=== PATIENT | female | born 1975 | race Caucasian/White ===

== ENCOUNTER 2022-06-20 15:34 | Emergency (ER) | payer OTHER ==
[~2022-06-20] VITALS: Ht 167.6 cm; Wt 90.7 kg
[2022-06-20 15:39] VITALS: BP_SYST 117
--- NOTE | 2022-06-20 16:39 | NUR ---
HCG NEGATIVE POC TEST IN ER.
[2022-06-20 16:44] LABS: BASOPHILS % (AUTO) 0.2 % (0.0-2.0); EOSINOPHILS # (AUTO) 0.2 K/uL (0.0-0.4); EOSINOPHILS % (AUTO) 2.9 % (0.0-4.0); HEMATOCRIT 40.9 % (36-48); HEMOGLOBIN 13.7 g/dL (12.0-16.0); LYMPHOCYTES # (AUTO) 1.5 K/uL (1.0-5.5); LYMPHOCYTES % (AUTO) 23.8 % (20.5-51.5); MEAN CORPUSCULAR HEMOGLOBIN 28 pg (27-31); MEAN CORPUSCULAR HGB CONC 34 % (32-36); MEAN CORPUSCULAR VOLUME 84 fL (79.0-98.0); MONOCYTES # (AUTO) 0.4 K/uL (0.0-1.0); NEUTROPHILS # (AUTO) 4.3 K/uL (1.8-7.7); NEUTROPHILS % (AUTO) 67.1 % (40.0-70.0); PLATELET COUNT (AUTO) 281 K/uL (130-430); RED BLOOD CELL COUNT(AUTO) 4.88 MIL/uL (4.2-6.2); RED CELL DISTRIBUTION WIDTH 13.8 % (9.0-15.0); WHITE BLOOD COUNT (AUTO) 6.5 K/uL (4.8-10.8)
--- NOTE | 2022-06-20 16:52 | NUR ---
PT AMBULATES WITH STEADY GAIT TO RADIOLOGY DEPT ACCOMPANIED BY TECH.
[2022-06-20 17:05] LABS: BILIRUBIN,URINE NEGATIVE (NEGATIVE); BLOOD, URINE 2+ (NEGATIVE); CLARITY/URINE CLEAR (CLEAR); COLOR,URINE YELLOW (YELLOW); GLUCOSE,URINE NEGATIVE (NEGATIVE); KETONES,URINE NEGATIVE (NEGATIVE); LEUKOCYTE ESTERASE ,URINE TRACE (NEGATIVE); NITRITE, URINE NEGATIVE (NEGATIVE); PROTEIN URINE NEGATIVE (NEGATIVE); UROBILINOGEN,URINE 0.2 (0.2-1.0)
[2022-06-20] MEDS ORDERED: NACL 0.9% 1,000 ML IV ONE (17:15)
[2022-06-20 17:16] LABS: BACTERIA,URINE None Seen /HPF (None Seen)
[2022-06-20 17:17] LABS: MUCUS,URINE None Seen /LPF (None Seen)
--- NOTE | 2022-06-20 17:21 | NUR ---
47 yo/f presents to ED w c/o R sided abdominal pain radiating to back dull 8/10 constant x1 day. pt denies fevers, chills, n/v/d or urinary symptoms. denies sob or chest pain. pmh: acid reflux allergies: latex
[2022-06-20 17:25] LABS: ALBUMIN 3.6 g/dL (3.4-4.8); CALCIUM 8.5 mg/dL (8.4-11.0); CREATININE 0.76 mg/dL (0.55-1.30); TOTAL BILIRUBIN 0.5 mg/dL (0.0-1.0)
[2022-06-20] MEDS ORDERED: KETOROLAC TROMETHAMINE 30 MG VIAL IVP ONE (17:30)
[2022-06-20] MEDS ORDERED: IBUP-1969 PO (17:49)
[2022-06-20] MEDS ORDERED: HYDR-3917 PO (17:49)
--- NOTE | 2022-06-20 18:15 | NUR ---
pt reports abdominal pain improvement 05/30.
[2022-06-20 18:45] VITALS: BP_SYST 127
--- NOTE | 2022-06-20 18:45 | NUR ---
Patient given written and verbal discharge instructions and verbalizes understanding. ER MD discussed with patient the results and treatment provided. Patient in stable condition. ID arm band removed. IV catheter removed intact and dressing applied, no active bleeding. Rx of norco, ibuprofen given. Patient educated on pain management and to follow up with PMD. Pain Scale 4/10. Opportunity for questions provided and answered. Medication side effect fact sheet provided.
== END 2022-06-20 18:45 | disposition home or self-care (01) ==
LOC: SED 15:34
DX: R10.31 Right lower quadrant pain (principal); Z79.899 Other long term (current) drug therapy
CPT/HCPCS: 99285; 74176; 96374; 96361; 80053; 81000; 83690; 85025; 36415; 76376; 81025; J1885; J7030